=== PATIENT | female | born 1990 | race African-American/Black ===

== ENCOUNTER 2021-09-07 00:02 | Inpatient (IN) ==
[2021-09-07] MEDS ORDERED: BUTORPHANOL 2 MG/ML VIAL IV PRN (00:13)
[2021-09-07] MEDS ORDERED: miSOPROStoL 200 MCG TABLET RECTAL PRN (00:13)
[2021-09-07] MEDS ORDERED: TRANEXAMIC ACID 1,000 MG in SODIUM CHLORIDE 0.9% 100 ML IV PRN (00:13)
[2021-09-07] MEDS ORDERED: OXYTOCIN/LR 20 UNIT/1,000 ML BAG IV ONE ×2 (00:13→17:58)
[2021-09-07] MEDS ORDERED: MEPERIDINE 50 MG/1 ML VIAL IV PRN (00:13)
[2021-09-07] MEDS ORDERED: ONDANSETRON 4 MG/2 ML VIAL IV PRN ×2 (00:13→17:58)
[2021-09-07] MEDS ORDERED: CARBOPROST TROMETHAMINE 250 MCG/ML AMP IM PRN (00:13)
[2021-09-07] MEDS ORDERED: METHYLERGONOVINE 0.2 MG/1 ML AMP IM PRN (00:13)
[2021-09-07 00:43] LABS: Basophils % 0.3 % (0.0-0.8); Eosinophils # 0.1 10*3/uL (0.0-0.87); Eosinophils % 0.6 % (0.00-10.9); Hematocrit 33.4 VOL% (35.7-47.0); Immature Granulocytes % 1.3 %; Lymphocytes # 1.8 10*3/uL (1.4-4.0); Lymphocytes % 22.9 % (21.3-54.2); Mean Corpuscular HGB Conc 32.9 GM/DL (32-36); Mean Corpuscular Volume 82.1 FL (87-102); Mean Platelet Volume 9.6 FL (9.6-12.0); Monocytes # 0.6 10*3/uL (0.11-0.8); Monocytes % 7.5 % (1.7-12.7); Neutrophils % 67.4 % (38.7-73.9); Platelet Count 320 T/CUMM (130-400); Red Blood Count 4.07 MC/CUMM (3.8-5.5); Red Cell Distribution Width 15.5 % (9.3-17.3)
[2021-09-07 01:03] LABS: Alanine Aminotransferase 20 U/L (13-56); Albumin 2.5 G/DL (3.4-5.0); Alkaline Phosphatase 225 U/L (45-117); Aspartate Amino Transferase 20 U/L (0-37); Bilirubin,Total < 0.39 MG/DL (0.20-1.00); Blood Urea Nitrogen 22 MG/DL (7-18); Calcium 9.7 MG/DL (8.5-10.1); Carbon Dioxide 21 MMOL/L (21-32); Chloride 110 MMOL/L (98-107); Glucose 89 MG/DL (74-106); Osmolality,Calculated 274.8 MOS/KG (273-304); Potassium 3.9 MMOL/L (3.5-5.1); Sodium 137 MMOL/L (136-145); Total Protein 7.6 G/DL (6.4-8.2)
[2021-09-07 01:29] LABS: Hypochromia 1+; Platelet Estimate Normal
[2021-09-07] MEDS: LABETALOL 200 MG TABLET PO SCH ×2 (01:36→08:22)
[2021-09-07] MEDS ORDERED: OXYTOCIN/LR 20 UNIT/1,000 ML BAG IV SCH (05:49)
[2021-09-07] MEDS: LACTATED RINGERS 1,000 ML IV SCH ×3 (06:05→15:21)
[2021-09-07] MEDS ORDERED: CITRIC ACID/SODIUM CITRATE 30 ML UDCUP PO ONE (08:58)
[2021-09-07] MEDS ORDERED: PROMETHAZINE 25 MG/1 ML VIAL IM PRN (08:58)
[2021-09-07] MEDS ORDERED: hydrOXYzine HCL 25 MG/1 ML VIAL IM PRN (08:58)
[2021-09-07] MEDS ORDERED: NALOXONE 0.4 MG/ML VIAL IV PRN (08:58)
[2021-09-07] MEDS ORDERED: diphenhydrAMINE 50 MG/1 ML VIAL IV PRN (08:58)
[2021-09-07] MEDS ORDERED: ePHEDrine 50 MG/ML VIAL IV PRN (08:58)
[2021-09-07] MEDS ORDERED: FAMOTIDINE 20 MG/2 ML VIAL IV ONE (08:58)
[2021-09-07] MEDS ORDERED: fentaNYL 2 MCG/ROPIV 0.2% EPID 100 ML EPIDURAL SCH (09:00)
[2021-09-07 11:03] LABS: Mucus,Urine Occasional /LPF (Occasional); RBC,Urine 1 /HPF (0-4)
[2021-09-07 11:04] LABS: Bilirubin,Urine Negative (Negative); Blood, Urine Negative (Negative); Glucose,Urine (UA) Negative (Negative); Ketones,Urine Negative (Negative); Nitrite,Urine Negative (Negative); Protein,Urine Negative (Negative); Urine Appearance Clear (Clear); Urine Color Yellow (Yellow); Urine Specific Gravity > 1.030 (1.001-1.035); Urine Urobilinogen 0.2 eU/dL (<2.0); Urine pH 5.5 (4.5-8.0)
[2021-09-07] MEDS ORDERED: CARBOPROST TROMETHAMINE 250 MCG/ML AMP IM ONE (13:50)
[2021-09-07] MEDS ORDERED: miSOPROStoL 200 MCG TABLET ONE (13:50)
[2021-09-07] MEDS ORDERED: TERBUTALINE 1 MG/1 ML VIAL ONE (16:49)
[2021-09-07] MEDS ORDERED: TERBUTALINE 1 MG/1 ML VIAL SUBCUT ONE (16:52)
[2021-09-07] MEDS ORDERED: ceFAZolin 3,000 MG in SYRINGE 1 EACH IV ONE (16:52)
[2021-09-07] MEDS ORDERED: OXYTOCIN 10 UNIT/ML VIAL IM ONE (16:53)
[2021-09-07] MEDS ORDERED: OXYTOCIN/LR 30 UNIT/1,000 ML BAG IV ONE (16:53)
[2021-09-07] MEDS ORDERED: LIDOCAINE MPF 2% /EPI 20 ML VIAL ONE (16:59)
[2021-09-07] MEDS ORDERED: ONDANSETRON 4 MG/2 ML VIAL ONE (16:59)
[2021-09-07] MEDS ORDERED: buprenorphine HCL 0.3 MG/ML VIAL ONE (17:18)
[2021-09-07 17:51] LABS: Cord Arterial Blood HCO3 20.4 MMOL/L
[2021-09-07 17:54] LABS: Cord Venous Blood HCO3 21.3 MMOL/L; Cord Venous Blood PCO2 46.5 MMHG; Cord Venous Blood PO2 24.7
[2021-09-07] MEDS ORDERED: MAGNESIUM HYDROXIDE SUSP 30 ML UDCUP PO PRN (17:58)
[2021-09-07] MEDS ORDERED: RHO(D) IMMUNE GLOBULIN 300 MCG SYRINGE IM ONE (17:58)
[2021-09-07] MEDS ORDERED: IBUPROFEN 800 MG TABLET PO PRN (17:58)
[2021-09-07] MEDS ORDERED: ACETAMINOPHEN 325 MG TABLET PO PRN (17:58)
[2021-09-07] MEDS ORDERED: SIMETHICONE CHEW 80 MG TABLET PO PRN (17:58)
[2021-09-07] MEDS ORDERED: LACTATED RINGERS 1,000 ML IV SCH (18:00)
[2021-09-07] MEDS ORDERED: NIFEdipine 10 MG CAPSULE PO ONE (19:31)
[2021-09-08] MEDS ORDERED: ACETAMINOPHEN 500 MG TABLET PO SCH ×2 (00:01)
[2021-09-08] MEDS ORDERED: KETOROLAC 30 MG/1 ML VIAL IV SCH (00:01)
[2021-09-08] MEDS: KETOROLAC 30 MG/1 ML VIAL IV SCH ×2 (00:09→05:37)
[2021-09-08] MEDS: DOCUSATE SODIUM 100 MG CAPSULE PO SCH ×3 (00:22→21:30)
[2021-09-08] MEDS: ceFAZolin 2,000 MG/50 ML DUPLEX IV SCH ×2 (01:12→09:19)
[2021-09-08 02:52] LABS: Basophils % 0.2 % (0.0-0.8); Eosinophils % 0.1 % (0.00-10.9); Hematocrit 32.8 VOL% (35.7-47.0); Hemoglobin 9.9 GM/DL (12.0-16.0); Immature Granulocytes % 0.6 %; Immature Granulocytes Absolute 0.07 #; Lymphocytes # 1.5 10*3/uL (1.4-4.0); Lymphocytes % 12.4 % (21.3-54.2); Mean Corpuscular HGB Conc 30.2 GM/DL (32-36); Mean Corpuscular Volume 87.2 FL (87-102); Monocytes # 0.6 10*3/uL (0.11-0.8); Monocytes % 5.3 % (1.7-12.7); Neutrophils % 81.4 % (38.7-73.9); Platelet Count 214 T/CUMM (130-400); Red Blood Count 3.76 MC/CUMM (3.8-5.5); Red Cell Distribution Width 15.9 % (9.3-17.3); White Blood Count 12.1 T/CUMM (4-12)
[2021-09-08] MEDS: MULTIVITAMIN (PRENATAL) TABLET PO SCH (09:16)
[2021-09-08 09:53] LABS: Basophils % 0.2 % (0.0-0.8); Eosinophils % 0.4 % (0.00-10.9); Hematocrit 29.7 VOL% (35.7-47.0); Hemoglobin 9.5 GM/DL (12.0-16.0); Immature Granulocytes % 0.7 %; Immature Granulocytes Absolute 0.08 #; Lymphocytes # 1.4 10*3/uL (1.4-4.0); Lymphocytes % 12.2 % (21.3-54.2); Mean Corpuscular Volume 82.7 FL (87-102); Mean Platelet Volume 10.4 FL (9.6-12.0); Monocytes # 0.7 10*3/uL (0.11-0.8); Monocytes % 5.9 % (1.7-12.7); Neutrophils % 80.6 % (38.7-73.9); Platelet Count 225 T/CUMM (130-400); Red Blood Count 3.59 MC/CUMM (3.8-5.5); Red Cell Distribution Width 15.6 % (9.3-17.3); White Blood Count 11.2 T/CUMM (4-12)
[2021-09-08] MEDS ORDERED: BISACODYL 10 MG SUPP RECTAL PRN (16:59)
[2021-09-08] MEDS: METOCLOPRAMIDE 10 MG TABLET PO SCH (17:54)
[2021-09-09] MEDS: METOCLOPRAMIDE 10 MG TABLET PO SCH ×2 (03:59→08:54)
[2021-09-09 07:26] VITALS: BP 151/52
[2021-09-09] MEDS: MULTIVITAMIN (PRENATAL) TABLET PO SCH (08:53)
[2021-09-09] MEDS: DOCUSATE SODIUM 100 MG CAPSULE PO SCH (08:53)
[2021-09-09] MEDS ORDERED: FUROSEMIDE 40 MG TABLET PO ONE (09:15)
[2021-09-09] MEDS ORDERED: FUROSEMIDE 20 MG TABLET ONE (09:32)
== END 2021-09-09 12:55 | disposition home or self-care (01) | DRG 788 ==
LOC: N.LD 00:02 → N.OB 20:45
PROVIDERS: ADMIT Obstetrics & Gynecology; ATTEND Obstetrics & Gynecology
PROC: LDCSECT (ICD-10-PCS; 2021-09-07 17:05)